=== PATIENT | female | born 1930 | race Caucasian/White ===

== ENCOUNTER → 2016-09-28 | Outpatient (CLI) | payer MEDICARE ==
[~2016-09-28] MED LIST: (NONE)1 CA1; (NONE)1 CA1 PO; ACTOS PO; ANTIVERT PO; ASPIRIN PO; ASPIRIN81 M2 PO; BONIVA150 MG PO; CALTRATE 600 +1 EACH PO; CALTRATE 600+D PO; CARBAMAZEPINE25 GM PO; CENTRUM SILVER PO; DIOVAN HCT 160/1 TAB PO; DIOVAN160 MG PO; DIOVAN80 M1 PO; EPITOL; EXCEDRIN ASA FR1 TA1 PO; FERRO-TIME325 MG PO; FISH OIL 1,0001 EAC1 PO; FISH OIL300 MG PO; FLUOROMETHOLONE15 ML OP; FLUOROMETHOLONE5 M1; GLYNASE PO; HCTZ PO; HYDRALAZINE HCL25 MG PO; IRON PO; IRON325 ( 652 PO; LANTUS100 U/ML SUBQ; LASIX PO; LEVEMIR FL100 UNIT/1; LEVEMIR SUBQ; LEVOTHYROXINE50 MC1 PO; LEXAPRO PO; LOPRESSOR PO; LOTEMAX3.5 GM OU; LOTEMAX5 ML OU; METOPROLOL TAR25 MG PO; MIDODRINE PO; MULTI VITAMIN1 EACH PO; MURO; MURO-12815 M1 OU; MURO-12815 ML; NEXIUM PO; NORVASC PO; NOVOLOG FL100 UNIT/1; NOVOLOG100 U/M1 SUBQ; NOVOLOG100 U/ML SUBQ; OMEPRAZOLE40 M1 PO; PLAVIX PO; PRILOSEC PO; SIMVASTATIN20 MG PO; SYNTHROID PO; TOPROL XL 50 MG50 MG PO; TRENTAL400 MG PO; VALSARTAN80 MG PO; VITAMIN D400 UNI2; ZOCOR PO; ZOCOR20 MG PO; [UNRECOGNIZED DRUG - OTHER]; [UNRECOGNIZED DRUG - SUPPLY]
[2016-09-28 11:11] LABS: BASOPHIL# 0.1 X10e3 (0-0.3); BASOPHIL% 0.7 % (0-2.5); EOSINOPHIL# 0.1 X10e3 (0-0.7); EOSINOPHIL% 0.8 % (0.0-7.0); HEMATOCRIT 40.3 % (35.0-45.0); HEMOGLOBIN 13.3 gm/dL (12.0-16.0); LYMPHOCYTE# 1.6 X10e3 (1.0-3.5); LYMPHOCYTE% 18.8 % (17.0-45.0); MEAN CELL VOLUME 89.3 FL (83-96); MEAN CORPUSCULAR HEMOGLOBIN 29.5 PG (28-34); MEAN CORPUSCULAR HGB CONC 33.1 g/dL (30-36); MEAN PLATELET VOLUME 7.9 FL (6.5-11.5); MONOCYTE# 0.7 X10e3 (0-1.0); MONOCYTE% 8.5 % (3.0-12.0); NEUTROPHIL% 71.2 % (40-75); PLATELET COUNT 162 X10e3 (140-420); RED BLOOD COUNT 4.51 X10e (3.90-5.30); RED CELL DISTRIBUTION WIDTH 13.9 % (11.0-15.5); WHITE BLOOD COUNT 8.4 X10e3 (4.0-10.5)
[2016-09-28 11:11] LABS: URINE APPEARANCE CLEAR; URINE BILIRUBIN NEG (NEG); URINE BLOOD NEG (NEG); URINE COLOR YELLOW; URINE GLUCOSE NEG (NEG); URINE KETONE NEG (NEG); URINE LEUKOCYTE ESTERASE 2+ (NEG); URINE NITRATE NEG (NEG); URINE PH 5.5 (5-8); URINE PROTEIN NEG (NEG); URINE SPECIFIC GRAVITY 1.018 (1.003-1.035); URINE UROBILINOGEN 0.2 MG/DL (NEG)
[2016-09-28 11:13] LABS: U HYALINE CASTS AUWI 0-2 /[LPF]; URBCS1 AUWI 0-2 /[HPF] (0-2); URINE BACTERIA AUWI NEG (NEGATIVE); URINE SQUAMOUS EPITHELIAL CELL NONE SEEN /[HPF]; UWBCS1 AUWI 25-50 (0-5)
[2016-09-28 11:16] LABS: DIFF IND NO
[2016-09-28 11:40] LABS: CREATININE,RANDOM URINE 87 mg/dL; TOTAL PROTEIN,RANDOM URINE 21 mg/dl (<10)
[2016-09-28 11:42] LABS: ALBUMIN SERUM 3.7 g/dL (3.5-5.0); BILIRUBIN,TOTAL 0.5 mg/dL (0.2-2.0); CALCIUM SERUM 9.7 mg/dL (8.4-10.2); CREATININE SERUM 1.4 mg/dL (0.6-1.4); GLOM FILT RATE Estimated 34.2 mL/min (>60); POTASSIUM 4.8 mmol/L (3.5-5.1); PROTEIN TOTAL SERUM 7.1 g/dL (6.0-8.3)
== END | disposition home or self-care (01) ==
LOC: CLAB 10:21
PROVIDERS: Internal Medicine Nephrology
DX: N18.3 Chronic kidney disease, stage 3 (moderate) (principal)
CPT/HCPCS: 80053; 81003; 82570; 84156; 85025